=== PATIENT | female | born 1965 | race Two or more races ===

== ENCOUNTER 2017-04-16 09:22 | Day surgery (SDC) | payer OTHER ==
[2017-04-16 10:34] VITALS: BMI 33.3
[2017-04-16 11:38] VITALS: TEMP 97.5
[2017-04-16 12:39] VITALS: BP 198/80; PULSE 56
--- NOTE | 2017-04-19 12:46 | PATH ---
Surgical Pathology Report Patient Name: ZEE RODRIGUEZ [facility]. Rec. #: [id number] /Age/Gender: 1965 (Age: 51) / F Account: [id number] Location: U-ENDOSCOPY Taken: 04/16/2017 Received: 04/16/2017 Reported: 04/19/2017 Physicians: Rick Sanchez M.D. Specimen(s) Received A: BX STOMACH B: BX GE JUNCTION C: BX ASCENDING COLON POLYP D: BX SIGMOID COLON POLYP E: BX RECTAL POLYP Clinical History Chronic constipation Erosive gastritis, inflammatory nodule GE junction, diverticulosis, colon polyps, hemorrhoids Final Diagnosis A. STOMACH, BIOPSY: GASTRIC ANTRAL MUCOSA WITH MODERATE CHRONIC GASTRITIS. IMMUNOSTAIN FOR H. PYLORI IS NEGATIVE FOR ORGANISMS. B. GE JUNCTION, BIOPSY: COLUMNAR CARDIA TYPE MUCOSA WITH CHRONIC INFLAMMATION. NO SQUAMOUS EPITHELIUM PRESENT. NO INTESTINAL METAPLASIA (BLACK'S ESOPHAGUS) IDENTIFIED IN THE EXAMINED MATERIAL. C. COLON, ASCENDING, POLYP, BIOPSY: POLYPOID FRAGMENT OF COLONIC MUCOSA WITH PROMINENT REACTIVE LYMPHOID AGGREGATE. D. COLON, SIGMOID, POLYP, BIOPSY: HYPERPLASTIC POLYP. E. RECTUM, POLYP, BIOPSY: HYPERPLASTIC POLYP. Electronically Signed Edvin Germain M.D. Gross Description A. Received in formalin, labeled "biopsy stomach" is a ellison, irregular portion of soft tissue measuring 0.5 cm in greatest dimension. The specimen is submitted in toto in one cassette. B. Received in formalin, labeled "biopsy GE junction" is a ellison, irregular portion of soft tissue measuring 0.3 cm in greatest dimension. The specimen is submitted in toto in one cassette. C. Received in formalin, labeled "biopsy ascending colon polyp" is a ellison, irregular portion of soft tissue measuring 0.4 cm in greatest dimension. The specimen is submitted in toto in one cassette. D. Received in formalin, labeled "biopsy sigmoid colon polyp" is a ellison, irregular portion of soft tissue measuring 0.2 cm in greatest dimension. The specimen is submitted in toto in one cassette. E. Received in formalin, labeled "biopsy rectal polyp" is a ellison, irregular portion of soft tissue measuring 0.5 cm in greatest dimension. The specimen is submitted in toto in one cassette. 04/16/201704/16/2017
== END 2017-04-16 13:21 | disposition home or self-care (01) ==
LOC: JASU-ENDO 09:22
PROVIDERS: ATTEND Internal Medicine Gastroenterology
PROC: 0DBP8ZX Excision of Rectum, Via Natural or Artificial Opening Endoscopic, Diagnostic (ICD-10-PCS; 2017-04-16)
PROC: 0DBN8ZX Excision of Sigmoid Colon, Via Natural or Artificial Opening Endoscopic, Diagnostic (ICD-10-PCS; 2017-04-16)
PROC: 0DB68ZX Excision of Stomach, Via Natural or Artificial Opening Endoscopic, Diagnostic (ICD-10-PCS; 2017-04-16)
PROC: 0DB48ZX Excision of Esophagogastric Junction, Via Natural or Artificial Opening Endoscopic, Diagnostic (ICD-10-PCS; 2017-04-16)
PROC: 0DBK8ZX Excision of Ascending Colon, Via Natural or Artificial Opening Endoscopic, Diagnostic (ICD-10-PCS; principal; 2017-04-16 10:30)
DX: Z12.11 Encounter for screening for malignant neoplasm of colon (principal); K63.5 Polyp of colon; K29.51 Unspecified chronic gastritis with bleeding; K57.30 Diverticulosis of large intestine without perforation or abscess without bleeding; I10 Essential (primary) hypertension; E78.5 Hyperlipidemia, unspecified; J45.909 Unspecified asthma, uncomplicated; G47.30 Sleep apnea, unspecified
CPT/HCPCS: 84703; 88305-TC; 88342-TC